=== PATIENT | male | born 1945 | race Caucasian/White ===

== ENCOUNTER → 2016-07-14 | Day surgery (SDC) | payer OTHER ==
[~2016-07-14] MED LIST: ACETAMINOPHEN/HYDROcodone 325 MG/5 MG TAB ONE; BACITRACIN IM FOR SOLN 50,000 UNIT VIAL ONE; BUPIVACAINE/EPINEPHRINE 0.25% 50 ML VIAL ONE; BUPIVACAINE/EPINEPHRINE 0.25% PF 10 ML VIAL ONE; GENTAMICIN SULFATE 80 MG/2 ML VIAL ONE; KETOROLAC TROMETHAMINE 30 MG/ML (IVP) VIAL IV PUSH ONE; LACTATED RINGER'S 1000 ML INJ 1,000 ML ONE; MEPERIDINE HCL 25 MG/ML VIAL ONE; MIDAZOLAM HCL 2 MG/2 ML VIAL ONE; MORPHINE SULFATE 4 MG/ML INJ ONE; ONDANSETRON HCL 4 MG/2 ML VIAL IV PUSH ONE; PROPOFOL 200 MG/20 ML AMP IV ONE; SODIUM CHLOR 0.9% 250 ML BAG IV ONE; SODIUM CHLORIDE 0.9% 20 ML VIAL ONE; VANCOMYCIN HCL 1000 MG VIAL ONE; ceFAZolin 2 GM PREMIX 50 ML ONE; ceFAZolin INJ 1,000 MG VIAL ONE
--- NOTE | 2016-07-14 10:00 | TN ---
cc: JITENDRA CHILEL DATE OF SURGERY 07/14/2016 PREOPERATIVE DIAGNOSES 1. Osteoarthritis of the right knee, medial compartment. 2. Chondromalacia patellae. POSTOPERATIVE DIAGNOSES 1. Osteoarthritis of the right knee, medial compartment. 2. Chondromalacia patellae. PROCEDURE 1. Right knee unicompartmental replacement arthroplasty, medial compartment. 2. Partial patellectomy. SURGEON Jitendra Chilel MD [employer]PER[employer] Vance Chilel MD ANESTHESIA General. ESTIMATED BLOOD LOSS 100 cc TOURNIQUET TIME 33 minutes at 250 mmHg INDICATION This patient is a 70-year-old male with varus deformity and arthritis of the right knee. Investigative studies show evidence of arthritis predominantly in the medial compartment. The patient has had injections, nonsteroidal anti-inflammatory medications and activity modification. He uses a knee brace. The patient has had previous arthroscopic surgery right knee. He now presents for surgical treatment. COMPONENTS Company: [employer] Femur: Size 4 right medial, metal, cemented Tibia: Size 4, all polyethylene, cemented, 6.5 mm PROCEDURE The patient was brought to the operating and anesthetized in the supine position. The right leg was placed in arthroscopy bonds. It was scrubbed alcohol, followed by Hibiclens, followed by Chloraprep and draped sterilely. Antibiotics were given within a one-hour time limit. Time-out was done. After exsanguination the tourniquet was inflated to 250 mmHg. An anterior and slightly medial incision was made and a median parapatellar arthrotomy was performed. The medial facet of the patella was resected decreasing contacting forces. Deep retractors were positioned. The meniscus was excised. There was severe erosion of articular cartilage in the medial compartment down to bone with exposed bone. A medial osteophyte was noted. The posterior facet of the femur was resected using the guide for a #4 femoral component. The tibia was contoured freehand for #4 tibial inlay. The femur was contoured to accept a #4 femoral component. A trial reduction showed excellent balancing in flexion and extension. The wound was irrigated copiously. A field block was used with 0.25% Marcaine with epinephrine. One packet of methyl methacrylate was mixed on the back table and the components were cemented. The cement was allowed to harden, excess cement was removed. The patient's range of motion was from full extension to 120 degrees flexion. The medial osteophyte was resected. The tourniquet was let down and hemostasis was controlled. A deep drain was brought through a separate stab incision. The arthrotomy was repaired with interrupted #2 Ticron, the subcutaneous tissue with 2-0 Vicryl suture and skin with running dermal 3-0 Vicryl, followed by Benzoin and Steri-Strips. Sponge count, needle counts and instrument counts were all correct. The patient tolerated the procedure well and was taken to the recovery room in satisfactory condition. Jitendra MD ZEYAD Sweet/VI /9:33 AM /9:53 AM MTDGabriella
== END | disposition home or self-care (01) ==
LOC: ESDC 07:04
PROVIDERS: ATTEND Orthopaedic Surgery Orthopaedic Surgery of the Spine
DX: M17.11 Unilateral primary osteoarthritis, right knee (principal); M22.41 Chondromalacia patellae, right knee
CPT/HCPCS: 01400; 27446; C1776; J0690; J1580; J1885; J2175; J2250; J2270; J2405; J3010; J3370; J7050; J7120